=== PATIENT | female | born 1990 | race Caucasian/White ===

== ENCOUNTER 2017-01-30 21:25 | Emergency (ER) | payer OTHER ==
[~2017-01-30] VITALS: Ht 149.9 cm; Wt 52.3 kg
[2017-01-30 21:27] VITALS: BP 112/52
== END 2017-01-30 22:00 | disposition home or self-care (01) ==
LOC: EMS 21:29
DX: Z04.1 Encounter for examination and observation following transport accident (principal); F10.129 Alcohol abuse with intoxication, unspecified; F17.200 Nicotine dependence, unspecified, uncomplicated; V43.52XA Car driver injured in collision with other type car in traffic accident, initial encounter; Y93.89 Activity, other specified; Y92.89 Other specified places as the place of occurrence of the external cause; Y99.8 Other external cause status
CPT/HCPCS: 99283